=== PATIENT | female | born 1950 | race Caucasian/White ===

== ENCOUNTER 2017-08-27 15:17 | Emergency (ER) | payer OTHER, BC ==
[~2017-08-27] VITALS: Ht 167.6 cm; Wt 72.8 kg
[2017-08-27 15:21] VITALS: TEMP 37; Ht 167.6 cm; Wt 72.8 kg
[2017-08-27] MEDS ORDERED: SODIUM CHLORIDE 0.9% 1000ML 1,000 ML IV STA (15:38)
--- NOTE | 2017-08-27 15:39 | EMERGENCY ROOM VISIT NOTE ---
History Report prepared by Ilene: Shira Hoyos Under the Supervision of: Dr. Oscar Patino D.O. First contact with patient: 15:32 Chief Complaint: TACHYCARDIA Stated Complaint: RAPID PULSE Nursing Triage Summary: "I have been feeling a little woozy and my pulse has been rapid". I thought I should come in and be checked. No complaints of CP. No cardiac HX. History of Present Illness The patient is a 67 year old female who presents to the Emergency Room with complaints of general persistent palpitations since this morning. She reports a history of palpitations and was seen for an echo cardiogram 30 years ago. She notes it was normal, though she believes her palpitations are attributed to aspartame and caffeine. She notes that she had stopped using aspartame and minimized her caffeine intake, so she is unsure why she is having palpitations. She states that she has also become momentarily dizzy when she sits up. She notes the dizziness has been intermittent for several months. She has a history of cataracts. She describes the dizziness as trying to focus her vision, which this portion of the symptom she states did not begin until two days ago. She denies any chest pain, shortness of breath, leg pain, leg swelling, or recent travels. She has not seen her PCP for these symptoms. She denies any other underlying medical problems. She denies any history of surgeries. She has a family history of HTN and stroke. She reports eating and drinking as normal. She denies feeling any sickness. Source of History: patient Onset: since this morning Position: other (general) Quality: other (palpitations) Timing: other (persistent) Associated Symptoms: No chest pain, No SOB Note: She notes dizziness with changes to her vision. She denies any leg pain, leg swelling, or recent travels. Review of Systems See HPI for pertinent positives & negatives. A total of 10 systems reviewed and were otherwise negative. Past Medical & Surgical Medical Problems: (1) Palpitation Family History FH: stroke Hypertension Social History Smoking Status: Never Smoker Marital Status: single Housing Status: lives alone Current/Historical Medications Scheduled Ibuprofen (Advil), 200 MG PO PRN Allergies Coded Allergies: Aspartame (Verified Allergy, Unknown, TACHYCARDIA, 08/27/17) Physical Exam Vital Signs Date Time Temp Pulse Resp B/P (MAP) Pulse Ox O2 Delivery O2 Flow Rate FiO2 08/27/17 17:47 91 16 135/69 98 08/27/17 17:10 70 16 167/97 95 Room Air 08/27/17 16:11 89 08/27/17 15:21 37.0 127 22 146/71 95 Room Air Physical Exam GENERAL: Patient is awake, alert, and in no acute distress. Patient is resting comfortably and showing no signs of anxiety EYES: The conjunctivae are clear. The pupils are round and reactive. EARS, NOSE, MOUTH AND THROAT: The nose is without any evidence of any deformity. Mucous membranes are moist tongue is midline NECK: The neck is nontender and supple. RESPIRATORY: Normal respiratory effort is noted there is no evidence of wheezing rhonchi or rales CARDIOVASCULAR: Tachycardic rate, but regular rhythm. No definite murmur noted to auscultation. GASTROINTESTINAL: The abdomen is soft. Bowel sounds are present in all quadrants. Abdomen is nontender MUSCULOSKELETAL/EXTREMITIES: There is no evidence of gross deformity full range of motion is noted in the hips and shoulders SKIN: There is no obvious evidence of any rash. There are no petechiae, pallor or cyanosis noted. NEUROLOGIC: Patient is awake alert and oriented x3. Medical Decision & Procedures ER Provider Diagnostic Interpretation: Radiology results as stated below per my review and radiologist interpretation: CHEST ONE VIEW PORTABLE CLINICAL HISTORY: ABDOMINAL PAIN/GI pain COMPARISON STUDY: No previous studies for comparison. FINDINGS: The bones soft tissues and hemidiaphragms are normal. The cardiomediastinal silhouette is normal. The lungs are clear. The pulmonary vasculature is normal. IMPRESSION: Negative chest. The above report was generated using voice recognition software. It may contain grammatical, syntax or spelling errors. Electronically signed by: Camilo Rodriguez M.D. 08/27/2017 3:54 PM Dictated Date/Time: 08/27/2017 3:54 PM (CHEST FOR PE) ANGIO WITH CT DOSE: 491.04 mGycm HISTORY: Chest pain dyspnea TECHNIQUE: Multiaxial CT images of the chest were performed following the intravenous administration of contrast to evaluate the pulmonary arteries. Maximal intensity projection images were also obtained. A dose lowering technique was utilized adhering to the principles of ALARA. COMPARISON STUDY: None. FINDINGS: There is a normal caliber thoracic aorta with no evidence for dissection. There is no evidence for pulmonary embolus. No pleural effusions. No pneumothorax. The liver and spleen are unremarkable. No mediastinal or hilar lymphadenopathy. The central airways are patent. Lungs demonstrate mild diffuse nonspecific interstitial change. IMPRESSION: No evidence for pulmonary embolus. Moderate nonspecific interstitial change throughout both hemithoraces. The above report was generated using voice recognition software. It may contain grammatical, syntax or spelling errors. Electronically signed by: Camilo Rodriguez M.D. 08/27/2017 5:41 PM Dictated Date/Time: 08/27/2017 5:38 PM Laboratory Results 08/27/17 15:50 Red Blood Count 4.76, Mean Corpuscular Volume 91.6, Mean Corpuscular Hemoglobin 30.9, Mean Corpuscular Hemoglobin Concent 33.7, Mean Platelet Volume 10.4, Neutrophils (%) (Auto) 55.8, Lymphocytes (%) (Auto) 34.6, Monocytes (%) (Auto) 8.5, Eosinophils (%) (Auto) 0.7, Basophils (%) (Auto) 0.3, Neutrophils # (Auto) 3.94, Lymphocytes # (Auto) 2.44, Monocytes # (Auto) 0.60, Eosinophils # (Auto) 0.05, Basophils # (Auto) 0.02 08/27/17 15:50 Test 08/27/17 15:50 08/27/17 16:01 White Blood Count 7.06 K/uL (4.8-10.8) Red Blood Count 4.76 M/uL (4.2-5.4) Hemoglobin 14.7 g/dL (12.0-16.0) Hematocrit 43.6 % (37-47) Mean Corpuscular Volume 91.6 fL (80-100) Mean Corpuscular Hemoglobin 30.9 pg (25-34) Mean Corpuscular Hemoglobin Concent 33.7 g/dl (32-36) Platelet Count 264 K/uL (130-400) Mean Platelet Volume 10.4 fL (7.4-10.4) Neutrophils (%) (Auto) 55.8 % Lymphocytes (%) (Auto) 34.6 % Monocytes (%) (Auto) 8.5 % Eosinophils (%) (Auto) 0.7 % Basophils (%) (Auto) 0.3 % Neutrophils # (Auto) 3.94 K/uL (1.4-6.5) Lymphocytes # (Auto) 2.44 K/uL (1.2-3.4) Monocytes # (Auto) 0.60 K/uL (0.11-0.59) Eosinophils # (Auto) 0.05 K/uL (0-0.5) Basophils # (Auto) 0.02 K/uL (0-0.2) RDW Standard Deviation 47.4 fL (36.4-46.3) RDW Coefficient of Variation 14.0 % (11.5-14.5) Immature Granulocyte % (Auto) 0.1 % Immature Granulocyte # (Auto) 0.01 K/uL (0.00-0.02) Prothrombin Time 10.4 SECONDS (9.0-12.0) Prothromb Time International Ratio 1.0 (0.9-1.1) Activated Partial Thromboplast Time 24.1 SECONDS (21.0-31.0) Partial Thromboplastin Ratio 0.9 Anion Gap 7.0 mmol/L (3-11) Est Creatinine Clear Calc Drug Dose 60.4 ml/min Estimated GFR () 75.1 Estimated GFR (Non- 64.8 BUN/Creatinine Ratio 15.5 (10-20) Calcium Level 9.2 mg/dl (8.5-10.1) Magnesium Level 2.5 mg/dl (1.8-2.4) Total Bilirubin 0.3 mg/dl (0.2-1) Direct Bilirubin < 0.1 mg/dl (0-0.2) Aspartate Amino Transf (AST/SGOT) 22 U/L (15-37) Alanine Aminotransferase (ALT/SGPT) 15 U/L (12-78) Alkaline Phosphatase 76 U/L (45-117) Total Creatine Kinase 79 U/L (26-192) Creatine Kinase MB 1.3 ng/ml (0.5-3.6) Creatine Kinase MB Ratio 1.6 (0-3.0) Troponin I < 0.015 ng/ml (0-0.045) Total Protein 7.9 gm/dl (6.4-8.2) Albumin 3.7 gm/dl (3.4-5.0) Lipase 105 U/L (73-393) Thyroid Stimulating Hormone (TSH) 1.630 uIu/ml (0.300-4.500) Free Thyroxine 1.14 ng/dl (0.80-1.60) Chemistry Specimen Hemolysis Bedside D-Dimer > 450 ng/mlFEU (0-450) Laboratory results per my review. Medications Administered Medications (Trade) Dose Ordered Sig/Idalmis Route Start Time Stop Time Status Last Admin Dose Admin Sodium Chloride 1,000 ml @ 999 mls/hr Q1H1M STAT IV 08/27/17 15:38 08/27/17 16:38 DC 08/27/17 15:38 999 MLS/HR ECG Per My Interpretation Indication: palpitations Rate (beats per minute): 116 Rhythm: sinus tachycardia Findings: ST depression (apical), no ectopy (no PVC) Comparison ECG Date: no prior available ED Course 1535: The patient was evaluated in room C7. A complete history and physical examination were performed. 153: Ordered NSS 1,000 ml @ 999 mls/hr IV 1624: I reassessed the patient at this time. She agreed to have a CT scan. 1923: I reassessed the patient at this time. She is feeling better. 2046: I reassessed the patient at this time. I discussed the results and treatment plan with the patient and her mother. I answered all pertaining questions that they had. They expressed understanding and verbalized agreement. The patient will be discharged home. Medical Decision Prior records/ancillary studies reviewed. Triage Nursing notes reviewed. The patient's history was concerning for palpitations. Differential diagnosis: Etiologies such as premature contractions, electrolyte abnormality, cardiac dysrhythmia, thyroid dysfunction, pulmonary embolism, infection, gastrointestinal, as well as others were entertained. The patient is a 67-year-old female who presented to the emergency department for an evaluation of palpitations. The patient was found to be in sinus tachycardia. She was treated with IV fluids with significant reduction of her symptoms as well as her heart rate. She had no other symptoms but was explaining some episodes of dizziness which she had recently. For this reason a d-dimer was performed. The patient was found to have an elevated d-dimer. For this reason a CT the chest was obtained. I discussed the patient's laboratory and radiographic studies with her. She was feeling much better on subsequent reevaluation. She was encouraged to rest and avoid any strenuous activity. She was also encouraged to avoid any caffeinated beverages. She was encouraged to follow-up with her doctor to discuss other testing such as echocardiogram and Holter monitoring. She was also encouraged to return the emergency department immediately if symptoms change worsen or the need arises. The patient presented during an unscheduled [facility] downtime. For this reason her visit was significant delayed. Medication Reconcilliation Current Medication List: was personally reviewed by me Blood Pressure Screening Patient's blood pressure: Elevated blood pressure Blood pressure disposition: Elevated BP felt to be situational Impression Primary Impression: Palpitation Additional Impression: Sinus tachycardia Scribe Attestation The scribe's documentation has been prepared under my direction and personally reviewed by me in its entirety. I confirm that the note above accurately reflects all work, treatment, procedures, and medical decision making performed by me. Departure Information Dispostion Home / Self-Care Referrals Lisa Cohen D.O. (PCP) Patient Instructions My [facility] [address] Problem Qualifiers
--- NOTE | 2017-08-27 15:56 | DIAGNOSTIC IMAGING REPORT ---
CHEST ONE VIEW PORTABLE CLINICAL HISTORY: ABDOMINAL PAIN/GI pain COMPARISON STUDY: No previous studies for comparison. FINDINGS: The bones soft tissues and hemidiaphragms are normal. The cardiomediastinal silhouette is normal. The lungs are clear. The pulmonary vasculature is normal. IMPRESSION: Negative chest. The above report was generated using voice recognition software. It may contain grammatical, syntax or spelling errors. Electronically signed by: Camilo Rodriguez M.D. 08/27/2017 3:54 PM Dictated Date/Time: 08/27/2017 3:54 PM
[2017-08-27 16:11] LABS: BASO % 0.3 %; BASO ABS # 0.02 K/uL (0-0.2); EOS % 0.7 %; EOS ABS # 0.05 K/uL (0-0.5); HEMATOCRIT 43.6 % (37-47); HEMOGLOBIN 14.7 g/dL (12.0-16.0); IG# 0.01 K/uL (0.00-0.02); LYMPH % 34.6 %; LYMPH ABS # 2.44 K/uL (1.2-3.4); MEAN CELL VOLUME 91.6 fL (80-100); MEAN CORPUSCULAR HEMOGLOBIN 30.9 pg (25-34); MEAN CORPUSCULAR HGB CONC 33.7 g/dl (32-36); MEAN PLATELET VOLUME 10.4 fL (7.4-10.4); MONO % 8.5 %; NEUT % 55.8 %; NEUT ABS # 3.94 K/uL (1.4-6.5); PLATELET COUNT 264 K/uL (130-400); RED CELL DISTRIBUTION WIDTH SD 47.4 fL (36.4-46.3); WHITE BLOOD COUNT 7.06 K/uL (4.8-10.8)
[2017-08-27 16:21] LABS: PTT PATIENT 24.1 SECONDS (21.0-31.0)
[2017-08-27] MEDS ORDERED: IBUP-1050 PO (16:24)
[2017-08-27] MEDS ORDERED: OPTIRAY 320 IV PRN (16:45)
[2017-08-27 16:46] LABS: ALBUMIN 3.7 gm/dl (3.4-5.0); ALKALINE PHOSPHATASE 76 U/L (45-117); ALT/SGPT 15 U/L (12-78); AST/SGOT 22 U/L (15-37); BLOOD UREA NITROGEN 14 mg/dl (7-18); CALCIUM 9.2 mg/dl (8.5-10.1); CARBON DIOXIDE 26 mmol/L (21-32); CKMB 1.3 ng/ml (0.5-3.6); CREATININE 0.91 mg/dl (0.60-1.20); GLUCOSE 137 mg/dl (70-99); LIPASE 105 U/L (73-393); POTASSIUM 3.4 mmol/L (3.5-5.1); SODIUM 136 mmol/L (136-145); TOTAL PROTEIN 7.9 gm/dl (6.4-8.2)
--- NOTE | 2017-08-27 17:42 | DIAGNOSTIC IMAGING REPORT ---
(CHEST FOR PE) ANGIO WITH CT DOSE: 491.04 mGycm HISTORY: Chest pain dyspnea TECHNIQUE: Multiaxial CT images of the chest were performed following the intravenous administration of contrast to evaluate the pulmonary arteries. Maximal intensity projection images were also obtained. A dose lowering technique was utilized adhering to the principles of ALARA. COMPARISON STUDY: None. FINDINGS: There is a normal caliber thoracic aorta with no evidence for dissection. There is no evidence for pulmonary embolus. No pleural effusions. No pneumothorax. The liver and spleen are unremarkable. No mediastinal or hilar lymphadenopathy. The central airways are patent. Lungs demonstrate mild diffuse nonspecific interstitial change. IMPRESSION: No evidence for pulmonary embolus. Moderate nonspecific interstitial change throughout both hemithoraces. The above report was generated using voice recognition software. It may contain grammatical, syntax or spelling errors. Electronically signed by: Camilo Rodriguez M.D. 08/27/2017 5:41 PM Dictated Date/Time: 08/27/2017 5:38 PM
[2017-08-27 17:47] VITALS: BP 135/69; PULSE 91; O2SAT 98
== END 2017-08-27 21:08 | disposition home or self-care (01) ==
LOC: C.EDB 15:19 → C.EDC 21:08
DX: R00.2 Palpitations (principal); R00.0 Tachycardia, unspecified; R42 Dizziness and giddiness; Z88.8 Allergy status to other drugs, medicaments and biological substances; Z82.49 Family history of ischemic heart disease and other diseases of the circulatory system; Z82.3 Family history of stroke